=== PATIENT | female | born 1980 | race Caucasian/White ===

== ENCOUNTER 2018-05-14 15:19 | Emergency (ER) | payer BC ==
--- NOTE | 2018-05-14 15:55 | EDM.PDOC ---
ED HPI GENERAL MEDICAL PROBLEM - General Chief Complaint: Upper Extremity Injury/Pain Stated Complaint: anxiety Time Seen by Provider: 05/14/18 15:19 Source of Information: Reports: Patient, Family History Limitations: Reports: No Limitations - History of Present Illness INITIAL COMMENTS - FREE TEXT/NARRATIVE: 37 y.o.w.f came to the ed due to left wrist pain which started after she driving car from home [place] beach with her . Pt felt suddenly flushed and had pain in her left wrist while driving. Pt was drinking last night and has a h /o anxiety for which she takes Lorazepam. However, this was not an usual pattern of her anxiety. She was concerned she has a stroke which brought her to the ED. Pt had no food intake since last night. Her accu check was 85 here in the ed. Pt denied any other acute medical issues. BP 135/85 RR 18 Pulse ox 100 % Temp 36.6 pulse 75. 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 History: Social & Family History - Family History Family Medical History: Noncontributory - Tobacco Use Smoking Status *Q: Never Smoker - Caffeine Use Caffeine Use: Reports: Soda - Recreational Drug Use Recreational Drug Use: No Review of Systems - Review of Systems Review Of Systems: See Below Constitutional: Reports: No Symptoms Eyes: Reports: No Symptoms Ears: Reports: No Symptoms Nose: Reports: No Symptoms Mouth/Throat: Reports: No Symptoms Respiratory: Reports: No Symptoms Cardiovascular: Reports: No Symptoms GI/Abdominal: Reports: No Symptoms Genitourinary: Reports: No Symptoms Musculoskeletal: Reports: Other (wrist pain with movement) Skin: Reports: No Symptoms Neurological: Reports: Tingling (left fingers) Psychiatric: Reports: Anxiety (H/O ) ED EXAM, GENERAL - Physical Exam Exam: See Below Exam Limited By: No Limitations General Appearance: Alert, WD/WN, Mild Distress Eye Exam: Bilateral Eye: Normal Inspection Ears: Normal External Exam, Normal Canal Ear Exam: Bilateral Ear: Auricle Normal Nose: Normal Inspection, Normal Mucosa, No Blood Throat/Mouth: Normal Inspection, Normal Lips, Normal Teeth, Normal Gums, Normal Voice, No Airway Compromise Head: Atraumatic, Normocephalic Neck: Normal Inspection, Supple, Non-Tender, Full Range of Motion Respiratory/Chest: No Respiratory Distress, Lungs Clear, Normal Breath Sounds Cardiovascular: Normal Peripheral Pulses, Regular Rate, Rhythm, No Edema, No Gallop, No JVD GI/Abdominal: Normal Bowel Sounds, Soft, Non-Tender, No Organomegaly, No Distention (Female) Exam: Deferred Rectal (Female) Exam: Deferred Back Exam: Normal Inspection, Full Range of Motion Extremities: Normal Inspection, Normal Range of Motion, Non-Tender, No Pedal Edema Neurological: Alert, Oriented, CN II-XII Intact, Normal Cognition Psychiatric: Normal Affect, Depressed Mood Skin Exam: Warm, Dry, Intact, Normal Color, No Rash Lymphatic: No Adenopathy Course - Vital Signs Text/Narrative:: 37 y.o.w.f came to the ed due to left wrist pain which started after she driving car from home to a beach with her . Pt felt suddenly flushed and had pain in her left wrist while driving. Pt was drinking last night and has a h /o anxiety for which she takes Lorazepam. However, this was not an usual pattern of her anxiety. She was concerned she has a stroke which brought her to the ED. Pt had no food intake since last night. Her accu check was 85 here in the ed. Pt denied any other acute medical issues. BP 135/85 RR 18 Pulse ox 100 % Temp 36.6 pulse 75. PE: WNWD W F with left wrist discomfort and anxiety which is improving while here in the ed. No trauma. Labs: Accu check: 85 Imaging: Not indicated Impression: Anxiety, Left wrist sprain Tx: ICE to left wrist. Pt refused pain meds or anxiety meds. Reexam: Improved Plan: D/C with instructions Last Recorded V/S: Last Vital Signs Temp 36.4 C 05/14/18 15:19 Pulse 89 05/14/18 15:19 Resp 18 05/14/18 15:19 BP 135/85 05/14/18 15:19 Pulse Ox 100 05/14/18 15:19 Departure - Departure Time of Disposition: 15:55 Disposition: Home, Self-Care 01 Condition: Good Clinical Impression: Anxiety, Tendinitis of left wrist - Discharge Information Instructions: Generalized Anxiety Disorder, Pediatric, Wrist Pain, Adult Referrals: Allison Wise [employer] [Primary Care Provider] - Forms: ED Department Discharge Additional Instructions: Please cont your anxiety meds as needed, Ice to left wrist, Motrin with food for pain left wrist. Please follow up with your PMD, come back if your symptoms get worse acutely.
== END 2018-05-14 16:05 | disposition home or self-care (01) ==
LOC: FB.ED 15:19
DX: S63.502A Unspecified sprain of left wrist, initial encounter (principal); M77.9 Enthesopathy, unspecified; F41.9 Anxiety disorder, unspecified; X58.XXXA Exposure to other specified factors, initial encounter
CPT/HCPCS: 82962; 99283